=== PATIENT | male | born 1955 | race African-American/Black ===

== ENCOUNTER 2016-10-11 18:36 | Emergency (ER) | payer SELFPAY ==
[~2016-10-11] VITALS: Ht 182.9 cm; Wt 99.8 kg
[2016-10-11] MEDS: LORazepam 2MG/ML-1ML VIAL IV ONE (18:55)
[2016-10-11] MEDS: LORazepam 2MG/ML-1ML VIAL ONE (19:08)
[2016-10-11 19:57] LABS: Basophils # (auto) 0.2 uL; Basophils % (auto) 2.2 % (0.0-2.0); DEFINITIVE VIEW TRANSMISSION; Eosinophils # (auto) 0.2 uL; Eosinophils % (auto) 1.7 % (0.0-7.0); Hemoglobin 15.5 g/dL (13.5-17.5); Lymphocytes # (auto) 2.4 uL; Lymphocytes % (auto) 22.6 % (10.0-50.0); Mean Corpuscular Hemoglobin 26.3 pg (28.0-32.0); Mean Corpuscular Hgb Conc. 31.6 g/dL (32.0-36.0); Mean Corpuscular Volume 83.3 fL (80.0-100.0); Mean Platelet Volume 8.3 fL (7.4-10.4); Monocytes # (auto) 0.5 uL; Monocytes % (auto) 4.9 % (0.0-12.0); Neutrophils # (auto) 7.3 uL; Neutrophils % (auto) 68.6 % (37.0-80.0); Platelet Count (auto) 461 10^3/uL (140-450); Red Cell Distribution Width 15.2 % (11.6-16.0); White Blood Cell 10.7 10^3/uL (4.4-10.8)
[2016-10-11 19:59] LABS: INR 1.1 (0.9-1.15); Partial Thromboplastin Time 27.5 sec (22.64-33.71); Prothrombin Time 11.3 sec (9.37-12.3)
[2016-10-11] MEDS: SODIUM CHLORIDE 0.9% 1,000 ML IVB ONE (20:00)
[2016-10-11 20:19] LABS: Alkaline Phosphatase 85 U/L (45-117); Anion Gap 13 (5-15); Aspartate Aminotransferase 16 U/L (15-37); BUN/Creatinine Ratio 12.6; Bilirubin, Total 0.4 mg/dL (0.2-1.0); Blood Urea Nitrogen 14 mg/dL (7-18); Calcium 9.2 mg/dL (8.5-10.1); Carbon Dioxide 23 mmol/L (21-32); Chloride 106 mmol/L (98-107); GFR African American 86 mL/min; GFR Non-African American 71 mL/min; Glucose 129 mg/dL (74-106); Magnesium 2.1 mg/dL (1.6-2.6); Potassium 3.6 mmol/L (3.5-5.1); Sodium 142 mmol/L (136-145); Total Protein 8.7 g/dL (6.4-8.2)
[2016-10-11 20:27] LABS: Urine Bilirubin Negative (Negative); Urine Blood Negative /uL (Negative); Urine Color Yellow (Yellow); Urine Glucose Normal (Normal); Urine Hyaline Cast FEW /lpf (0 - 2); Urine Ketone Negative (Negative); Urine Mucus FEW (None Seen); Urine Nitrite Negative (Negative); Urine RBC <1 /hpf (0 - 3); Urine Urobilinogen Normal (Negative); Urine pH 6.5 (5.0-8.0)
[2016-10-11 20:59] LABS: Hypochromia Slight; Platelet Estimate Increased
[2016-10-11 21:24] VITALS: BP 125/84
== END 2016-10-11 21:50 | disposition home or self-care (01) ==
LOC: ER 18:42
DX: R41.82 Altered mental status, unspecified (principal); I10 Essential (primary) hypertension; Z86.73 Personal history of transient ischemic attack (TIA), and cerebral infarction without residual deficits; F14.10 Cocaine abuse, uncomplicated; F22 Delusional disorders; F19.10 Other psychoactive substance abuse, uncomplicated
CPT/HCPCS: 36415; 70450; 71010; 80053; 80320; 81001; 82962; 83735; 84484; 85025; 85610; 85730; 87040; 93005; 94761; 96361; 96374; 99285; G0434; J2060; J7030